=== PATIENT | female | born 1980 | race Caucasian/White ===

== ENCOUNTER 2017-03-23 17:01 | Emergency (ER) | END 2017-03-23 19:09 | disposition home or self-care (01) | DX: O21.9 Vomiting of pregnancy, unspecified (principal); R10.2 Pelvic and perineal pain; Z3A.11 11 weeks gestation of pregnancy | CPT/HCPCS: 76801; 80053; 81001; 83690; 85025; 96374; J2765; J7030; Z7502; Z7610 ==

== ENCOUNTER 2017-08-24 23:16 | Inpatient (IN) | END 2017-08-28 16:00 | disposition home or self-care (01) | DRG 765 ==